=== PATIENT | female | born 1980 | race American Indian/Alaskan Native ===

== ENCOUNTER 2022-02-25 22:19 | Emergency (ER) | payer MEDICAID, OTHER ==
[~2022-02-25] VITALS: Ht 165.1 cm; Wt 126.1 kg
[2022-02-25 23:35] VITALS: BP 119/71
--- NOTE | 2022-02-25 23:47 | NUR ---
Dr. Albarado examining patient.
[2022-02-25] MEDS ORDERED: KETOROLAC 30 MG/ML VIAL IM ONE (23:55)
[2022-02-25] MEDS ORDERED: FAMOTIDINE 20 MG TAB PO ONE (23:55)
[2022-02-25] MEDS ORDERED: ONDANSETRON 4 MG ODT PO ONE (23:55)
[2022-02-25] MEDS ORDERED: ONDA-188 PO (23:56)
[2022-02-25] MEDS ORDERED: SUCR1TAB35 PO (23:56)
[2022-02-25] MEDS ORDERED: FAMO-90 PO (23:56)
[2022-02-26 00:28] VITALS: BP 121/71
--- NOTE | 2022-02-26 00:28 | NUR ---
Patient discharged with v/s stable. Written and verbal after care instructions given and explained. Patient alert, oriented and verbalized understanding of instructions. Ambulatory with steady gait. All questions addressed prior to discharge. ID band removed. Patient advised to follow up with PMD. Rx of Carafate, Zofran and Pepcid given. Patient educated on indication of medication including possible reaction and side effects. Opportunity to ask questions provided and answered.
== END 2022-02-26 00:28 | disposition home or self-care (01) ==
LOC: MED 22:19
DX: R10.13 Epigastric pain (principal)
CPT/HCPCS: 96372; 99283; J1885; Q0162

== ENCOUNTER 2023-09-27 22:19 | Emergency (ER) | payer OTHER ==
[~2023-09-27] VITALS: Ht 165.1 cm; Wt 122.5 kg
[2023-09-27] MEDS: ONDANSETRON 4 MG/2 ML VIAL IVP ONE (00:02)
[~2023-09-27 22:19] MED LIST: BENA10TA81 PO; CIPR500T4 PO; FAMO20TA13 PO; ONDA4TAB12 PO; SUCR1TAB6 PO
[2023-09-27 22:20] VITALS: BP 150/83; PULSE 77; RESP 17; TEMP 97.8; O2SAT 97
[2023-09-27 22:31] VITALS: O2SAT 98
[2023-09-27 23:06] LABS: APPEARANCE,URINE CLEAR (CLEAR); BILIRUBIN,URINE NEGATIVE (NEGATIVE); BLOOD, URINE 2+ (NEGATIVE); COLOR,URINE YELLOW (YELLOW); LEUKOCYTE ESTERASE ,URINE TRACE (NEGATIVE); NITRITE, URINE NEGATIVE (NEGATIVE); PROTEIN,URINE TRACE (NEGATIVE); UGLUCOSE NEGATIVE (NEGATIVE); UROBILINOGEN,URINE 0.2 EU/dL (0.2 - 1)
[2023-09-27 23:13] LABS: BACTERIA,URINE >30 (MANY) /HPF (None Seen); MUCUS,URINE 1+ /LPF (None Seen); SQUAMOUS EPITHELIAL CELL,UR 0-3 (FEW) /LPF (0-3 (FEW))
[2023-09-27 23:40] LABS: BASOPHILS % (AUTO) 0.3 % (0.0-2.0); EOSINOPHILS # (AUTO) 0.2 K/uL (0-0.4); EOSINOPHILS % (AUTO) 1.4 % (0.0-4.0); HEMATOCRIT 40.3 % (36-48); HEMOGLOBIN 13.3 g/dL (12.0-16.0); LYMPHOCYTES # (AUTO) 1.4 K/uL (2.5-16.5); LYMPHOCYTES % (AUTO) 12.5 % (20.5-51.1); MEAN CORPUSCULAR HEMOGLOBIN 29 pg (27-31); MEAN CORPUSCULAR HGB CONC 33 g/dL (33-37); MEAN CORPUSCULAR VOLUME 88.4 fL (80-94); MONOCYTES # (AUTO) 0.6 K/uL (0.8-1.0); MONOCYTES % (AUTO) 5.8 % (1.7-9.3); NEUTROPHILS # (AUTO) 8.8 K/uL (1.8-7.7); PLATELET COUNT (AUTO) 230 K/uL (140-450); RED BLOOD CELL COUNT(AUTO) 4.56 MIL/uL (4.20-5.40); RED CELL DISTRIBUTION WIDTH 14.9 % (11.6-13.7)
[2023-09-27] MEDS: NACL 0.9% 1,000 ML IV ONE (23:55)
[2023-09-27] MEDS: MORPHINE SULFATE 4 MG/ML SYR IVP ONE (23:58)
[2023-09-28 00:10] LABS: ANION GAP 12.7 (8-16); CALCIUM 8.8 mg/dL (8.5-10.1); CARBON DIOXIDE 29.1 mmol/L (21-32); POTASSIUM 3.8 mmol/L (3.5-5.1)
[2023-09-28 00:17] LABS: ALBUMIN 3.6 g/dL (3.4-5.0); BILIRUBIN,DIRECT 0.1 mg/dL (0.0-0.3); TOTAL BILIRUBIN 0.4 mg/dL (0.0-1.0)
[2023-09-28] MEDS ORDERED: cefTRIAXone 1,000 MG VIAL ONE (01:16)
[2023-09-28] MEDS ORDERED: CIPR500T4 PO (04:00)
[2023-09-28] MEDS ORDERED: METO-485 PO (04:00)
[2023-09-28 04:09] VITALS: BP 133/80; PULSE 84; RESP 18; TEMP 98; O2SAT 98
== END 2023-09-28 04:09 | disposition home or self-care (01) ==
LOC: MED 22:19
DX: N39.0 Urinary tract infection, site not specified (principal); R11.2 Nausea with vomiting, unspecified; I10 Essential (primary) hypertension; Z90.49 Acquired absence of other specified parts of digestive tract; Z98.890 Other specified postprocedural states; Z79.899 Other long term (current) drug therapy
CPT/HCPCS: 36415; 74176; 80048; 80076; 81001; 81025; 83690; 85025; 87040; 87086; 96361; 96365; 96375; 99285; J0696; J2270; J2405; J7030

== ENCOUNTER 2023-10-05 12:44 | Inpatient (IN) | payer OTHER ==
[~2023-10-05] VITALS: Ht 165.1 cm; Wt 127.0 kg
[~2023-10-05 12:44] MED LIST changes: +METO-485 PO
[2023-10-05 12:49] VITALS: BP 159/89; PULSE 94; RESP 17; TEMP 97.5; O2SAT 98
[2023-10-05 13:28] LABS: BASOPHILS % (AUTO) 0.5 % (0.0-2.0); EOSINOPHILS # (AUTO) 0.1 K/uL (0-0.4); EOSINOPHILS % (AUTO) 1.4 % (0.0-4.0); HEMOGLOBIN 13.6 g/dL (12.0-16.0); LYMPHOCYTES # (AUTO) 1.6 K/uL (2.5-16.5); LYMPHOCYTES % (AUTO) 18.5 % (20.5-51.1); MEAN CORPUSCULAR HEMOGLOBIN 29 pg (27-31); MEAN CORPUSCULAR HGB CONC 32 g/dL (33-37); MEAN CORPUSCULAR VOLUME 88.4 fL (80-94); MONOCYTES # (AUTO) 0.6 K/uL (0.8-1.0); MONOCYTES % (AUTO) 6.7 % (1.7-9.3); NEUTROPHILS # (AUTO) 6.3 K/uL (1.8-7.7); NEUTROPHILS % (AUTO) 72.9 % (42.2-75.2); PLATELET COUNT (AUTO) 218 K/uL (140-450); RED BLOOD CELL COUNT(AUTO) 4.75 MIL/uL (4.20-5.40); RED CELL DISTRIBUTION WIDTH 14.8 % (11.6-13.7); WHITE BLOOD COUNT (AUTO) 8.6 K/uL (4.8-10.8)
[2023-10-05 13:35] VITALS: O2SAT 97
[2023-10-05 13:39] LABS: ANION GAP 15.6 (8-16); CALCIUM 9.1 mg/dL (8.5-10.1); CARBON DIOXIDE 23.2 mmol/L (21-32); CREATININE 0.7 mg/dL (0.6-1.3); POTASSIUM 3.8 mmol/L (3.5-5.1)
[2023-10-05] MEDS: NACL 0.9% 1,000 ML IV SCH (13:41)
[2023-10-05] MEDS: KETOROLAC 30 MG/ML VIAL IVP ONE (13:50)
[2023-10-05] MEDS: ONDANSETRON 4 MG/2 ML VIAL IVP ONE (13:51)
[2023-10-05 13:53] LABS: APPEARANCE,URINE CLEAR (CLEAR); BILIRUBIN,URINE 1+ (NEGATIVE); BLOOD, URINE 3+ (NEGATIVE); COLOR,URINE YELLOW (YELLOW); LEUKOCYTE ESTERASE ,URINE NEGATIVE (NEGATIVE); NITRITE, URINE NEGATIVE (NEGATIVE); PH,URINE 5.5 (5.0-9.0); PROTEIN,URINE 2+ (NEGATIVE); UGLUCOSE NEGATIVE (NEGATIVE); UROBILINOGEN,URINE 0.2 EU/dL (0.2 - 1)
[2023-10-05 13:56] LABS: ICTOTEST POSITIVE (NEGATIVE)
[2023-10-05 14:02] LABS: BACTERIA,URINE 0-2 /HPF (None Seen); RBC,URINE >20 (MANY) /HPF (0-5); SQUAMOUS EPITHELIAL CELL,UR 0-3 (FEW) /LPF (0-3 (FEW)); WBC,URINE 16-25 (MOD) /HPF (0-5)
[2023-10-05 14:02] LABS: ALBUMIN 3.9 g/dL (3.4-5.0); BILIRUBIN,DIRECT 0.2 mg/dL (0.0-0.3); TOTAL BILIRUBIN 0.7 mg/dL (0.0-1.0); TOTAL PROTEIN, SERUM 8.3 g/dL (6.4-8.2)
[2023-10-05] MEDS: MORPHINE SULFATE 4 MG/ML SYR IVP ONE ×2 (15:00→17:00)
[2023-10-05] MEDS ORDERED: NACL 0.9% 1,000 ML IV SCH (15:20)
[2023-10-05] MEDS ORDERED: PIPERACILLIN/TAZOBACTAM 3.375 GM VIAL IV ONE (16:00)
[2023-10-05] MEDS: PIPERACILLIN/TAZOBACTAM 3.375 GM in DEXT 5% MINI-BAG PLUS 50 ML IV ONE (16:00)
[2023-10-05 16:14] LABS: PARTIAL THROMBOPLASTIN TIME 28.5 secs (22-35.6); PROTHROMBIN TIME 10.5 secs (10.8-13.4)
[2023-10-05 16:19] LABS: LACTIC ACID 1.1 mmol/L (0.4-2.0)
[2023-10-05] MEDS ORDERED: MORPHINE SULFATE 4 MG/ML SYR ONE (17:02)
[2023-10-05] MEDS ORDERED: IBUPROFEN 400 MG TAB PO PRN (17:15)
[2023-10-05] MEDS ORDERED: POTASSIUM CHLORIDE 10 MEQ TABER PO PRN (17:15)
[2023-10-05] MEDS ORDERED: ZOLPIDEM 5 MG TAB PO PRN (17:15)
[2023-10-05] MEDS ORDERED: LORazepam 1 MG TAB PO PRN (17:15)
[2023-10-05] MEDS ORDERED: MAG SULF 2000 MG/WATER PREMIX 50 ML IV PRN (17:15)
[2023-10-05] MEDS ORDERED: ACETAMINOPHEN 325 MG TAB PO PRN (17:15)
[2023-10-05] MEDS ORDERED: MAGNESIUM OXIDE 400 MG TAB PO PRN (17:15)
[2023-10-05] MEDS ORDERED: ONDANSETRON 4 MG/2 ML VIAL IVP PRN (17:15)
[2023-10-05] MEDS ORDERED: KCL 20 MEQ IN 100 mL PREMIX 200 ML IV PRN (17:15)
[2023-10-05 19:30] VITALS: PULSE 77; RESP 20; O2SAT 97
[2023-10-05 20:00] VITALS: BP 110/69; PULSE 77; RESP 20; TEMP 97.7; O2SAT 97
[2023-10-05] MEDS: POTASSIUM CHL 40 MEQ/ D5-1/2NS 1,000 ML IV SCH (21:29)
[2023-10-05] MEDS: HYDROcodone/APAP 5/325 MG 1 TAB TAB PO PRN (21:57)
[2023-10-05] MEDS: PIPERACILLIN/TAZOBACTAM 3.375 GM in DEXTROSE 5% 50 ML IV SCH (23:52)
[2023-10-06] VITALS: BP 121/64; PULSE 57; RESP 18; TEMP 97.7; O2SAT 97
[2023-10-06 04:00] VITALS: BP 121/64; PULSE 57; RESP 18; TEMP 97.7; O2SAT 97
[2023-10-06 07:10] LABS: BASOPHILS % (AUTO) 0.2 % (0.0-2.0); EOSINOPHILS # (AUTO) 0.1 K/uL (0-0.4); EOSINOPHILS % (AUTO) 1.7 % (0.0-4.0); HEMATOCRIT 37.4 % (36-48); HEMOGLOBIN 12.3 g/dL (12.0-16.0); LYMPHOCYTES % (AUTO) 30.9 % (20.5-51.1); MEAN CORPUSCULAR HEMOGLOBIN 29 pg (27-31); MEAN CORPUSCULAR HGB CONC 33 g/dL (33-37); MEAN CORPUSCULAR VOLUME 89.2 fL (80-94); MONOCYTES # (AUTO) 0.6 K/uL (0.8-1.0); MONOCYTES % (AUTO) 9.8 % (1.7-9.3); NEUTROPHILS # (AUTO) 3.7 K/uL (1.8-7.7); NEUTROPHILS % (AUTO) 57.4 % (42.2-75.2); PLATELET COUNT (AUTO) 213 K/uL (140-450); RED CELL DISTRIBUTION WIDTH 14.7 % (11.6-13.7); WHITE BLOOD COUNT (AUTO) 6.4 K/uL (4.8-10.8)
[2023-10-06 07:47] LABS: ALBUMIN 3.1 g/dL (3.4-5.0); ANION GAP 12.4 (8-16); CALCIUM 8.7 mg/dL (8.5-10.1); CARBON DIOXIDE 28.2 mmol/L (21-32); CREATININE 0.8 mg/dL (0.6-1.3); MAGNESIUM 2.2 mg/dL (1.8-2.4); POTASSIUM 4.6 mmol/L (3.5-5.1); TOTAL BILIRUBIN 0.7 mg/dL (0.0-1.0)
[2023-10-06 08:00] VITALS: BP 114/54; PULSE 62; PULSE 82; RESP 17; RESP 19; TEMP 98; O2SAT 97
[2023-10-06] MEDS: MEDS-TO-BEDS MC SCH (09:00)
[2023-10-06] MEDS: BENAZEPRIL 10 MG TAB PO SCH (10:04)
[2023-10-06] MEDS: FAMOTIDINE 20 MG TAB PO SCH (10:05)
[2023-10-06] MEDS: DOCUSATE SODIUM 100 MG GELCAP PO SCH (10:05)
[2023-10-06] MEDS: ENOXAPARIN 40 MG/0.4 ML SYR SUBQ SCH (10:06)
[2023-10-06 12:00] VITALS: BP 120/67; PULSE 69; RESP 19; TEMP 98.2; O2SAT 97
[2023-10-06] MEDS ORDERED: TAMS0.4C97 PO (12:40)
[2023-10-06] MEDS ORDERED: ACET-9527 PO (12:40)
[2023-10-06 14:26] VITALS: BP 120/67; PULSE 69; RESP 19; TEMP 98.2
== END 2023-10-06 14:45 | disposition home or self-care (01) | DRG 465 ==
LOC: MED 12:44 → MMU 17:19 → MTU 18:06
PROVIDERS: ADMIT Hospitalist; ATTEND Hospitalist
DX: N13.2 Hydronephrosis with renal and ureteral calculous obstruction (principal); E66.9 Obesity, unspecified; I10 Essential (primary) hypertension; K21.9 Gastro-esophageal reflux disease without esophagitis; Z79.899 Other long term (current) drug therapy; Z68.42 Body mass index [BMI] 45.0-49.9, adult
CPT/HCPCS: 36415; 71045; 76700; 80048; 80053; 80076; 81001; 83605; 83690; 83735; 85025; 85610; 85730; 87040; 87086; 87186; 96361; 96365; 96375; 96376; 99285; J1650; J1885; J2270; J2405; J2543; J7060; Q0092

== ENCOUNTER 2023-10-10 16:01 | Observation (INO) | payer OTHER ==
[~2023-10-10] VITALS: Ht 165.1 cm; Wt 129.7 kg
[~2023-10-10 16:01] MED LIST changes: +ACET-9527 PO; -CIPR500T4 PO; +TAMS0.4C97 PO
[2023-10-10 16:20] VITALS: BP 147/71; PULSE 83; RESP 18; TEMP 97.7; O2SAT 100
[2023-10-10] MEDS: KETOROLAC 30 MG/ML VIAL IVP ONE (16:50)
[2023-10-10] MEDS: ONDANSETRON 4 MG/2 ML VIAL IVP ONE (16:50)
[2023-10-10] MEDS: NACL 0.9% 1,000 ML IV SCH ×2 (17:14→23:10)
[2023-10-10] MEDS ORDERED: cefTRIAXone 1,000 MG VIAL ONE (17:15)
[2023-10-10 17:45] LABS: BASOPHILS % (AUTO) 0.3 % (0.0-2.0); EOSINOPHILS % (AUTO) 0.1 % (0.0-4.0); HEMATOCRIT 40.2 % (36-48); LYMPHOCYTES # (AUTO) 1.1 K/uL (2.5-16.5); LYMPHOCYTES % (AUTO) 10.1 % (20.5-51.1); MEAN CORPUSCULAR HEMOGLOBIN 29 pg (27-31); MEAN CORPUSCULAR HGB CONC 32 g/dL (33-37); MEAN CORPUSCULAR VOLUME 89.1 fL (80-94); MONOCYTES # (AUTO) 0.6 K/uL (0.8-1.0); MONOCYTES % (AUTO) 6.2 % (1.7-9.3); NEUTROPHILS # (AUTO) 8.7 K/uL (1.8-7.7); NEUTROPHILS % (AUTO) 83.3 % (42.2-75.2); PLATELET COUNT (AUTO) 231 K/uL (140-450); RED BLOOD CELL COUNT(AUTO) 4.51 MIL/uL (4.20-5.40); RED CELL DISTRIBUTION WIDTH 14.9 % (11.6-13.7); WHITE BLOOD COUNT (AUTO) 10.5 K/uL (4.8-10.8)
[2023-10-10 17:52] LABS: APPEARANCE,URINE CLEAR (CLEAR); BILIRUBIN,URINE NEGATIVE (NEGATIVE); BLOOD, URINE 3+ (NEGATIVE); COLOR,URINE YELLOW (YELLOW); LEUKOCYTE ESTERASE ,URINE NEGATIVE (NEGATIVE); NITRITE, URINE NEGATIVE (NEGATIVE); UGLUCOSE NEGATIVE (NEGATIVE); UROBILINOGEN,URINE 0.2 EU/dL (0.2 - 1)
[2023-10-10 17:54] LABS: PROTEIN,URINE NEGATIVE (NEGATIVE)
[2023-10-10] MEDS: cefTRIAXone 1,000 MG in DEXT 5% MINI-BAG PLUS 50 ML IV ONE (18:00)
[2023-10-10 18:08] LABS: ANION GAP 13.2 (8-16); CALCIUM 9.3 mg/dL (8.5-10.1); CARBON DIOXIDE 27.9 mmol/L (21-32); POTASSIUM 4.1 mmol/L (3.5-5.1)
[2023-10-10 18:12] LABS: INR 0.94 (0.8-1.2); PARTIAL THROMBOPLASTIN TIME 25.2 secs (22-35.6); PROTHROMBIN TIME 9.9 secs (10.8-13.4)
[2023-10-10 18:17] LABS: ALANINE AMINOTRANSFERASE 54 U/L (12-78); ALKALINE PHOSPHATASE 86 U/L (50-136); ASPARTATE AMINOTRANSFERASE 33 U/L (15-37); BILIRUBIN,DIRECT 0.1 mg/dL (0.0-0.3); TOTAL BILIRUBIN 0.5 mg/dL (0.0-1.0); TOTAL PROTEIN, SERUM 8.1 g/dL (6.4-8.2)
[2023-10-10 18:24] LABS: LACTIC ACID 1.8 mmol/L (0.4-2.0)
[2023-10-10 19:45] VITALS: O2SAT 97
[2023-10-10] MEDS: MORPHINE SULFATE 4 MG/ML SYR IVP ONE (21:44)
[2023-10-10] MEDS ORDERED: ONDANSETRON 4 MG/2 ML VIAL IVP PRN (21:55)
[2023-10-10] MEDS ORDERED: MAGNESIUM OXIDE 400 MG TAB PO PRN (21:55)
[2023-10-10] MEDS ORDERED: POTASSIUM CHLORIDE 10 MEQ TABER PO PRN (21:55)
[2023-10-10] MEDS ORDERED: ACETAMINOPHEN 325 MG TAB PO PRN (21:55)
[2023-10-10] MEDS ORDERED: MORPHINE SULFATE 4 MG/ML SYR IVP PRN (21:55)
[2023-10-10] MEDS ORDERED: KCL 20 MEQ IN 100 mL PREMIX 200 ML IV PRN (21:55)
[2023-10-10 21:58] VITALS: O2SAT 98
[2023-10-11 00:21] VITALS: O2SAT 97
[2023-10-11 03:26] VITALS: O2SAT 98
[2023-10-11 05:44] VITALS: O2SAT 94
[2023-10-11 07:55] LABS: BASOPHILS % (AUTO) 0.7 % (0.0-2.0); EOSINOPHILS # (AUTO) 0.2 K/uL (0-0.4); EOSINOPHILS % (AUTO) 3.4 % (0.0-4.0); HEMATOCRIT 38.4 % (36-48); HEMOGLOBIN 12.5 g/dL (12.0-16.0); LYMPHOCYTES # (AUTO) 2.1 K/uL (2.5-16.5); LYMPHOCYTES % (AUTO) 39.1 % (20.5-51.1); MEAN CORPUSCULAR HEMOGLOBIN 29 pg (27-31); MEAN CORPUSCULAR HGB CONC 33 g/dL (33-37); MEAN CORPUSCULAR VOLUME 90.2 fL (80-94); MONOCYTES # (AUTO) 0.5 K/uL (0.8-1.0); MONOCYTES % (AUTO) 8.5 % (1.7-9.3); NEUTROPHILS # (AUTO) 2.6 K/uL (1.8-7.7); NEUTROPHILS % (AUTO) 48.3 % (42.2-75.2); PLATELET COUNT (AUTO) 210 K/uL (140-450); RED BLOOD CELL COUNT(AUTO) 4.26 MIL/uL (4.20-5.40); RED CELL DISTRIBUTION WIDTH 14.8 % (11.6-13.7); WHITE BLOOD COUNT (AUTO) 5.5 K/uL (4.8-10.8)
[2023-10-11 08:01] LABS: CALCIUM 8.7 mg/dL (8.5-10.1); CREATININE 0.8 mg/dL (0.6-1.3); POTASSIUM 3.9 mmol/L (3.5-5.1)
[2023-10-11] MEDS ORDERED: TAMS0.4C97 PO (08:18)
[2023-10-11 08:28] LABS: ANION GAP 12.1 (8-16); CARBON DIOXIDE 27.8 mmol/L (21-32)
[2023-10-11 08:42] VITALS: BP 133/79; PULSE 66; RESP 18; TEMP 97.5; O2SAT 98
[2023-10-11] MEDS: MEDS-TO-BEDS MC SCH (09:00)
[2023-10-11] MEDS: TAMSULOSIN 0.4 MG CAP PO SCH (10:33)
[2023-10-11] MEDS: HYDROcodone/APAP 5/325 MG 1 TAB TAB PO PRN (11:20)
[2023-10-11 16:00] VITALS: BP 107/55; PULSE 70; RESP 18; TEMP 97.5; O2SAT 95
== END 2023-10-11 16:55 | disposition home or self-care (01) ==
LOC: MED 16:01 → MTU 21:54
PROVIDERS: ADMIT Hospitalist; ATTEND Hospitalist
DX: N13.2 Hydronephrosis with renal and ureteral calculous obstruction (principal); R11.2 Nausea with vomiting, unspecified; R06.02 Shortness of breath; I10 Essential (primary) hypertension; Z79.899 Other long term (current) drug therapy
CPT/HCPCS: 36415; 71045; 80048; 80076; 81003; 83605; 83880; 84484; 85025; 85610; 85730; 87040; 87081; 87086; 93005; 96361; 96365; 96372; 96375; 99285; G0378; J0696; J1644; J1885; J2270; J2405; J7060